=== PATIENT | female | born 1930 | race African-American/Black ===

== ENCOUNTER 2017-03-28 11:12 | Inpatient (IN) | payer OTHER, MEDICAID ==
[~2017-03-28] VITALS: Ht 165.1 cm; Wt 74.6 kg
[2017-03-28] MEDS ORDERED: ZOFRAN ODT8 MG PO (11:36)
[2017-03-28] MEDS ORDERED: TRAMADOL HCL50 MG PO (11:36)
[2017-03-28] MEDS ORDERED: VASOTEC20 MG PO (11:36)
[2017-03-28] MEDS ORDERED: LIPI20 PO (11:37)
[2017-03-28] MEDS ORDERED: ASPIR 8181 MG PO (11:38)
[2017-03-28] MEDS ORDERED: ESOMEPRAZOLE MA40 MG PO (11:38)
[2017-03-28] MEDS ORDERED: VESICARE10 M1 PO (11:39)
[2017-03-28] MEDS ORDERED: ACID REDUCER 1150 MG PO (11:39)
--- NOTE | 2017-03-28 11:45 | NUR ---
PT BROUGHT IN VIA [facility] TO BE EVALUATED FOR THE COMPLAINT OF A PRESSURE-LIKE HEADACHE WHICH BEGAN THIS AM APPROXIMATELY 4 HOURS AGO WHEN THE PT WOKE UP. PT IS A/O X 4. PT SLOW TO RESPOND BUT ANSWERING QUESTIONS APPROPRIATELY. HAND DIRECT SERVICE PROVIDER ARE STRONG BILATERALLY. NEGATIVE ARM DRIFT. PERRL. PT HAS A PORT A CATH NOTED TO THE LEFT UPPER ARM.
--- NOTE | 2017-03-28 12:03 | NUR ---
PT TAKEN TO CT VIA [facility]. CODE BRAIN CALLED BY DR. KOCH.
--- NOTE | 2017-03-28 12:11 | NUR ---
PT RETURNED FROM CT WITHOUT INCIDENCE
[2017-03-28 12:40] LABS: BASOPHIL % 0.4 % (0-2); PLATELET COUNT 202 x10^3mcL (130-400)
[2017-03-28 12:49] LABS: RED CELL DISTRIBUTION WIDTH 14.7 % (11.5-14.5)
[2017-03-28 12:51] LABS: CALCIUM 9.5 mg/dL (8.5-10.1); CARBON DIOXIDE 30.1 mmol/L (21-32); CHLORIDE SERUM 105 mmol/L (98-107); GLUCOSE SERUM 116 mg/dL (74-106); POTASSIUM SERUM 3.3 mmol/L (3.5-5.1); SODIUM SERUM 145 mmol/L (136-145)
[2017-03-28 12:55] LABS: ALBUMIN 3.7 g/dL (3.4-5.0); ALKALINE PHOSPHATASE 119 U/L (46-116); ALT/SGPT 22 U/L (14-59); AST/SGOT 25 U/L (15-37); MAGNESIUM 1.7 mg/dL (1.8-2.4); TOTAL PROTEIN, SERUM 6.8 g/dL (6.4-8.2)
[2017-03-28 13:02] LABS: UA SPECIFIC GRAVITY 1.015 (1.005-1.035); microscopic required? YES; urine erythrocyte 1+ (NEGATIVE)
--- NOTE | 2017-03-28 13:18 | NUR ---
PT REMAINS RESTING IN A POSITION OF COMFORT IN LOW POSITIONED BED WITH SIDE RAILS UP X 2 AND CALL LIGHT WITHIN REACH.
--- NOTE | 2017-03-28 13:50 | NUR ---
DR. KOCH AT BEDSIDE SPEAKING WITH THE PT AND PTS DAUGHTER ABOUT PLAN OF CARE.
--- NOTE | 2017-03-28 13:51 | NUR ---
DR. KOCH AWARE OF PTS BP. WILL PUT IN A NEW ORDER FOR TX
[2017-03-28 14:05] LABS: PHOSPHOROUS 3.5 mg/dL (2.5-4.9)
[2017-03-28 14:06] LABS: AMPHETAMINE QUAL UR NONE DETECTED (NEG <=1000)
[2017-03-28 14:14] LABS: T3 TOTAL 1.24 ng/mL
[2017-03-28 14:16] LABS: CHOLESTEROL/HDL RATIO 2.3; FREE T4 1.21 ng/dL (0.76-1.46); FREE THYROXINE INDEX 3.8 ug/dL (1.4-4.5); T4(THYROXINE) 11.4 ug/dL (4.7-13.3)
--- NOTE | 2017-03-28 14:55 | NUR ---
REPORT GIVEN TO MARGARET QUINTERO IN [facility] FOR CONTINUITY OF CARE
--- NOTE | 2017-03-28 14:57 | NUR ---
DR KOCH AWARE OF MOST RECENT BP AND OK'D PT TO BE TRANSFERED TO [facility]
[2017-03-28 15:14] VITALS: BP 198/95
--- NOTE | 2017-03-28 15:27 | NUR ---
RECEIVED PATIENT FROM ED VIA [facility], PATIENT WITH NO C/O PAIN AT THIS TIME, ALERT AND ORIENTED FAMILY AT BEDSIDE, BP 198/95, ORIENTED PATIENT TO ROOM AND SURROUNDINGS, BED IN LOW POSITION, BED RAILS UP X 2, CALL LIGHT WITHIN REACH, WILL ENDORSE CARE TO AXEL QUINTERO
--- NOTE | 2017-03-28 16:00 | NUR ---
B/P 195/ WITH REPORT OF MILD HEADACHE. DR AYALA WAS NOTIFIED WITH ORDER FOR LABETALOL IV AND HYDRALAZINE IV PRN.
[2017-03-28 16:06] VITALS: BP 195/93
--- NOTE | 2017-03-28 16:10 | NUR ---
ASSISTED TO THE BATHROOM TO VOID. PATIENT WAS NOTED TO WALK IN SLOW GAIT. NEEDS MODERATE ASST DUE TO WEAKNESS. NOTED TO BE FORGETFUL AND NEEDED TO BE REMINDED TO USE CALL LIGHT FOR ASST. BED ALARM WAS INITIATED.
--- NOTE | 2017-03-28 16:30 | NUR ---
REMINDED DR. AYALA THAT PATIENT DOES NOT HAVE DIET ORDER. SAID THAT SHE WILL ORDER A SWALLOW EVAL FIRST.
[2017-03-28 16:54] VITALS: BP 169/88
--- NOTE | 2017-03-28 16:56 | NUR ---
DR. AYALA WAS NOTIFIED OF LATEST B/P /.
[2017-03-28 17:38] VITALS: BP 169/81
--- NOTE | 2017-03-28 17:59 | NUR ---
PATIENT IS ALERT AND ORIENTED X 3, FORGETFUL AT TIMES. DENIES HEADACHE. ABLE TO MOVE BUE WITH LITTLE DIFFICULTY, ABLE TO WALK TO AMBULATE WITH SLOW GAIT. NO FACIAL DROOP NOTED. B/P WAS LOWER AFTER LABETALOL 10MG IV WAS GIVEN X 1.
--- NOTE | 2017-03-28 19:55 | NUR ---
PT RECIEVED AWAKE ALEET AND FORGETFUL REG RESP NO SOB,V/S STABLE,KEPT CLEAN AND DRY TO TOUCH,IV INFUSING TO THE LT UPPER ARM JUDITH CATH WITH THE SITE PATENT AND INTACT,PT ON TELE MONITOR AND IN NSR NO ECTOPY OR CHEST PAIN AT THIS TIME,BED IN THE LOW POSITION AND LOCKED,V/S STABLE,CALL LIGHT MADE CLOSE TO THE PATIENT AND WILL CONTINUE TO MONITOR.
[2017-03-28 22:05] VITALS: BP 130/77
[2017-03-29 06:14] LABS: BASOPHIL % 0.5 % (0-2); PLATELET COUNT 196 x10^3mcL (130-400); RED CELL DISTRIBUTION WIDTH 14.5 % (11.5-14.5)
[2017-03-29 06:35] VITALS: BP 138/68
--- NOTE | 2017-03-29 06:37 | NUR ---
PT HAD A RESTING NIGHT MADE COMFORTABLE IN BED,KEPT CLEAN AND DRY TO TOUCH,CALL LIGHT EASY REACHED AND WILL CONTINUE TO MONITOR.
[2017-03-29 06:40] LABS: CALCIUM 8.8 mg/dL (8.5-10.1); CARBON DIOXIDE 29.9 mmol/L (21-32); CHLORIDE SERUM 110 mmol/L (98-107); CREATININE SERUM 1.3 mg/dL (0.6-1.0); GLUCOSE SERUM 85 mg/dL (74-106); MAGNESIUM 1.6 mg/dL (1.8-2.4); PHOSPHOROUS 4.3 mg/dL (2.5-4.9); POTASSIUM SERUM 3.9 mmol/L (3.5-5.1); SODIUM SERUM 146 mmol/L (136-145)
--- NOTE | 2017-03-29 08:00 | NUR ---
PT RECIEVED IN BED, ASSESSED AND DOCUMENTED. DENIES PAIN AND HEADACHE AT THIS TIME, SAFETY PRECAUTIONS TAKEN. WILL CONTINUE TO MONITOR.
[2017-03-29 09:22] VITALS: BP 132/69
--- NOTE | 2017-03-29 09:30 | NUR ---
AND RESIDENCE DID ROUNDS AND EXPLAINED THE PLAN OF CARE, ADDRESSED CONCERNS AND QUESTIONS.
--- NOTE | 2017-03-29 13:27 | NUR ---
P.T. 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 S: Pt WAS SEEN AWAKE & ALERT IN BED, SPEAKS YORUBA, ORIENTED x3 ABLE TO FOLLOW COMMANDS, FORGETFUL AT TIMES, AGREEABLE & COOPE- RATIVE W/ P.T.; NO C/O PAIN OR DIZZINESS AT THIS TIME; SPEECH CLEAR; EAGER TO GO HOME. O: BED MOBILITY: INDEP IN SUPINE TO SIT, SLOW FACILITATION TRANSFERS: MIN/CG ASSIST IN SIT TO STAND, TENDS TO RETROLEAN GAIT: CG ASSIST W/ FWW X 112 FT, IV POLE IN TOW Pt ASSISTED TO BED SAFELY; HOB ELEVATED, CALL TERRY, PHONE, TABLE IN REACH; BED ALARM ON; APPRECIATIVE; ON ROOM AIR. A:Pt DEMO GOOD RESPONSE TO P.T. SESSION; FALL RISK; MILD WADDLING GAIT, TOE OUT POSITION L>R, WIDE BASED STANCE, STOOPED POSTURE, TENDS TO PLACE FWW TOO FAR AHEAD, REDUCED PACE GAIT; Pt EDUC ON SAFE GAIT, USE OF CALL LIGHT FOR NURSE ASSIST, HEP, VERBALIZED UNDERSTANDING, FAIR FOLLOW THRU; XI=655/80, HR=73, O2 SAT ROOM AIR=97%; NO NOTED LOSS OF BALANCE AT THIS TIME, NO NOTED FACIAL DROOPING OR DROOLING OR ONE SIDED LEANING AT THIS TIME. P:CONT PT ONCE DAILY 5X/WK X 1 WK; POC & DX DISCUSSED W/ DETAILER FURNITURE; WILL BENEFIT W/ P.T. AFTER ACUTE STAY, EMPHASIS ON FALL PREVENTION TECH, SAFE GAIT PROGRESSION W/ VARIOUS SURFACES, STRENGTHENING EXER. EVAL30 GCODES:[id number] [facility] REACH SCORE:22 inches [id number] Pt WAS GIVEN THERA EXER UE/[employer] W/ BED ACT; CONT PT EX8
[2017-03-29 13:38] VITALS: Ht 165.1 cm; Wt 74.6 kg
--- NOTE | 2017-03-29 14:00 | NUR ---
DR. GREWAL AWARE ABOUT H&H OF . COMPARED TO YESTERDAYS H&H OF .
[2017-03-29 14:15] VITALS: BP 133/61
[2017-03-29 14:37] LABS: CALCIUM 8.9 mg/dL (8.5-10.1); CARBON DIOXIDE 31.5 mmol/L (21-32); CHLORIDE SERUM 107 mmol/L (98-107); CREATININE SERUM 1.2 mg/dL (0.6-1.0); GLUCOSE SERUM 117 mg/dL (74-106); SODIUM SERUM 143 mmol/L (136-145)
[2017-03-29 19:00] VITALS: BP 128/61
--- NOTE | 2017-03-29 19:40 | NUR ---
RECEIVED PATIENT IN BED AWAKE, ALERT AND ORIENTED, FORGETFUL AT TIMES WITH NO SIGN OF ACUTE DISTRESS NOTED, TELE#31 NSR ON MONITOR, DENIES CHEST DISCOMFORT. SCD TO BLE IN PLACE. DIMINISHED BS SATTING AT 98% RA. ABDOMEN ROUND AND NON TENDER WITH ACTIVE BS. JUDITH CATH TO DAYANARA INTACT. WILL CONTINUE TO MONITOR. CALL LIGHT WITHIN REACH.
--- NOTE | 2017-03-29 19:42 | NUR ---
PT RESTING IN BED COMFORTABLY. DENIES PAIN. GAVE REPORT TO NEXT SHIFT NURSE.
[2017-03-29 20:37] LABS: BASOPHIL % 0.5 % (0-2); PLATELET COUNT 203 x10^3mcL (130-400); RED CELL DISTRIBUTION WIDTH 14.3 % (11.5-14.5)
[2017-03-29 20:55] VITALS: BP 133/69
--- NOTE | 2017-03-30 02:02 | NUR ---
SLEEPING WITH NO SIGN OF DISTRESS NOTED, BREATHING EASY AND NONLABOR.
--- NOTE | 2017-03-30 05:19 | NUR ---
SSLEPT FAIRLY CHECKED AT INTERVALS FOR NEEDS AND SAFETY. ALL NEEDS ATTENDED.
[2017-03-30 05:24] VITALS: BP 133/66
[2017-03-30 06:42] LABS: BASOPHIL % 0.4 % (0-2); PLATELET COUNT 177 x10^3mcL (130-400); RED CELL DISTRIBUTION WIDTH 14.3 % (11.5-14.5)
[2017-03-30 07:23] LABS: CALCIUM 8.9 mg/dL (8.5-10.1); CHLORIDE SERUM 107 mmol/L (98-107); CREATININE SERUM 1.1 mg/dL (0.6-1.0); GLUCOSE SERUM 77 mg/dL (74-106); PHOSPHOROUS 3.9 mg/dL (2.5-4.9); POTASSIUM SERUM 4.1 mmol/L (3.5-5.1); SODIUM SERUM 143 mmol/L (136-145)
[2017-03-30 07:29] LABS: ALBUMIN 2.8 g/dL (3.4-5.0)
--- NOTE | 2017-03-30 08:00 | NUR ---
RECEIVED PT IN BED.ASSESSED AND DOCUMENTED. DENIES ANY PAIN. NO DISTRESS NOTED. SAFTEY PRECAUTIONS ON. WILL MONITOR.
[2017-03-30 09:59] VITALS: BP 124/62
--- NOTE | 2017-03-30 13:00 | NUR ---
PT RESTING IN BED COMFORTABLY.PT AMBULATES TO BATHROOM WITH ASSIST AND WALKER. EATING WELL.
[2017-03-30 14:38] VITALS: BP 151/77
[2017-03-30 17:45] VITALS: BP 113/69
--- NOTE | 2017-03-30 19:05 | NUR ---
PT RESTING IN BED COMFORTABLY. DENIES ANY PAIN,REMAINS STABLE. GAVE REPORT TO NEXT SHIFT NURSE.
--- NOTE | 2017-03-30 19:36 | NUR ---
RECEIVED PATIENT IN BED AWAKE, ALERT AND ORIENTED WITH NO SIGN OF ACUTE DISTRESS, GRANDSON AT BEDSIDE. TELE #31,NSR ON MONITOR. SCD TO BLE IN PLACE. RESPIRATION EVEN AND NONLABOR WITH DIMINISHED BS SATTING AT 98% RA. JUDITH CATH LEFT UPPER ARM INTACT AND PATENT. WILL CONTINUE TO MONITOR. CALL LIGHT WITHIN REACH.
[2017-03-30 21:23] VITALS: BP 136/72
--- NOTE | 2017-03-31 01:51 | NUR ---
AWAKE THIS TIME ASSISTED TO BATHROOM AND VOIDED. NO SIGN OF DISTRESS NOTED.
--- NOTE | 2017-03-31 03:25 | NUR ---
AWAKE C/O HEADACHE MEDICATED WITH TYLENOL 650MG PO PRESCRIBED. WILL CONTINUE TO MONITOR.
--- NOTE | 2017-03-31 04:00 | NUR ---
BLOOD PRESSURE CHECKED-189/93, DR MEYER MADE AWARE, WAITING FOR NEW ORDERS.
--- NOTE | 2017-03-31 04:45 | NUR ---
PATIENT WITH EPISODE OF PAC ON MONITOR, DR MEYER MADE AWARE.
--- NOTE | 2017-03-31 04:48 | NUR ---
LABETALOL 10MG IVP GIVEN PRESCRIBED. FOR BP-189/93. WILL CONTINUE TO MONITOR. PATIENT SLEEPING WITH NO DISTRESS NOTED.
--- NOTE | 2017-03-31 05:04 | NUR ---
RECHECKED BLOD PRESSURE-118/72 AFTER LABETALOL 10MG IV GIVEN.
[2017-03-31 05:24] VITALS: BP 118/73
[2017-03-31 07:09] LABS: BASOPHIL % 0.4 % (0-2); PLATELET COUNT 209 x10^3mcL (130-400)
[2017-03-31 07:20] LABS: RED CELL DISTRIBUTION WIDTH 14.6 % (11.5-14.5)
--- NOTE | 2017-03-31 07:30 | NUR ---
RECEIVED PATIENT AWAKE AND ALERT IN BED, DENIES PAIN, NO ACUTE DISTRESS NOTED. DAYANARA JUDITH-CATH INTACT, SCD IN PLACE. CALL LIGHT WITHIN REACH. CONT TO MONITOR.
--- NOTE | 2017-03-31 09:39 | NUR ---
DR YU AT BEDSIDE SPEAK TO PATIENT'S DTR RUSSELL AND PER DTR WOULD LIKE TO SIGN PATIENT OUT; WILL TAKE PATIENT TO [facility]; DR YU EXPLAIN TO DTR THE RISKS FOR AMA; DTR - RUSSELL SIGN. MD GIVEN DTR COPIES OF RECENT RECORD PER REQUEST. PATIENT AWAKE AND ALERT IN BED; NO DISTRESS NOTED, CAROL ANN 149/77; HR 81. ALL DUE MEDS GIVEN; HL JUDITH-CATH TO DAYANARA.
[2017-03-31 10:01] VITALS: BP 149/77
[2017-03-31 10:12] LABS: CALCIUM 9.4 mg/dL (8.5-10.1); CARBON DIOXIDE 30.3 mmol/L (21-32); CHLORIDE SERUM 105 mmol/L (98-107); GLUCOSE SERUM 101 mg/dL (74-106); POTASSIUM SERUM 3.8 mmol/L (3.5-5.1); SODIUM SERUM 143 mmol/L (136-145)
--- NOTE | 2017-03-31 10:27 | NUR ---
PATIENT DTR REQUEST TO REMOVED JUDITH-CATH TO DAYANARA AND DR YU WAS CALLED FOR ORDER TO D/C LINE.
--- NOTE | 2017-03-31 10:46 | NUR ---
DAYANARA ACCESS DC'D AND INTACT; GAUZES DRESSING APPLIED. DTR ASSIST GETTING PATIENT DRESS; GASKET SUPERVISOR ASSISTING WHEEL PATIENT OUT AT THIS TIME.
== END 2017-03-31 10:45 | disposition left against medical advice (07) | DRG 73 ==
LOC: ED 11:12 → DU 13:30
PROVIDERS: Emergency Medicine; Family Medicine; ADMIT Family Medicine
DX: G90.9 Disorder of the autonomic nervous system, unspecified (principal); N17.0 Acute kidney failure with tubular necrosis; E43 Unspecified severe protein-calorie malnutrition; J90 Pleural effusion, not elsewhere classified; I16.1 Hypertensive emergency; E87.6 Hypokalemia; E83.42 Hypomagnesemia; E04.1 Nontoxic single thyroid nodule; I25.10 Atherosclerotic heart disease of native coronary artery without angina pectoris; K21.9 Gastro-esophageal reflux disease without esophagitis; D64.9 Anemia, unspecified; E78.5 Hyperlipidemia, unspecified; Z68.27 Body mass index [BMI] 27.0-27.9, adult; Z95.1 Presence of aortocoronary bypass graft; Z87.891 Personal history of nicotine dependence; Z85.72 Personal history of non-Hodgkin lymphomas; Z92.21 Personal history of antineoplastic chemotherapy; Z92.3 Personal history of irradiation; Z53.20 Procedure and treatment not carried out because of patient's decision for unspecified reasons
CPT/HCPCS: 80307; 83880; 84439; 97110-GP; C9113; J2270; J2405; J3475; J3490; J7040; J7050; Q0092